=== PATIENT | female | born 1955 | race Caucasian/White ===

== ENCOUNTER → 2023-07-13 | Outpatient (CLI) | payer MEDICARE ==
[~2023-07-13] VITALS: Ht 154.9 cm; Wt 59.8 kg
[2023-07-13] VITALS (11 sets, daily range): BP systolic 120–171; BP diastolic 63–85; PULSE 102–116; TEMP 97.6
[~2023-07-13] MED LIST: BASAGLAR K100 UNIT/1 SQ; PRENATAL TABLET PO; TAPAZOLE5 MG PO; TRULICITY1.5 MG/0.5 SQ; TYLENOL 8 HR PO; VITAMIN B12 1541 TAB PO; VITAMIN D31000 I1 PO; ZOCOR 10MG10 MG PO
[2023-07-13 08:25] LABS: HEMATOCRIT 28.1 % (37.0-47.0); MEAN CELL VOLUME 91 fl (80.0-100.0); MEAN CORPUSCULAR HEMOGLOBIN 32 pg (27-31); MEAN CORPUSCULAR HGB CONC 36 g/dl (33.0-37.0); MEAN PLATELET VOLUME 8.8 fl (7.4-10.4); PLATELET COUNT 99 K/mm3 (130-400); RED BLOOD COUNT 3.09 M/mm3 (4.10-5.30); REDCELL DISTRIBUTION WIDTH-CV 13.8 % (11.5-14.5)
[2023-07-13 10:07] LABS: ERYTHROCYTE SEDIMENTATION RATE 45 mm/hr (0-30)
--- NOTE | 2023-07-13 10:14 | NUR ---
NOT ALL LABS DRAWN. INFORMED THE LAB THEY RAN MUCH THEY COULD WITH THE BLOOD THEY HAD. CALLED THE PT TO COME BACK THEY WERE IN [place]. CALLED DR IRAHETA OFFICE AND LET THE NURSE KNOW. SHE WILL TALK TO THE DOCTOR AND CALL THE PATIENT.
[2023-07-13 10:30] LABS: EOSINOPHIL 2 % (0-4); LYMPHOCYTE 42 % (20.0-51.0); NEUTROPHILS 53 % (42.0-75.2); PLATELET ESTIMATE NORMAL (NORMAL)
== END ==
LOC: COL.RAD 07:20
PROVIDERS: Internal Medicine
DX: D61.818 Other pancytopenia (principal)
CPT/HCPCS: C1830; J2250; J3010

== ENCOUNTER 2023-09-04 11:29 | Emergency (ER) | payer MEDICARE ==
[~2023-09-04] VITALS: Ht 152.4 cm; Wt 59.1 kg
[~2023-09-04 11:29] MED LIST changes: +BLUE-EMU LIDOC1 EACH TP; +CYMBALTA 20MG20 MG
[2023-09-04 11:41] VITALS: TEMP 98.3
[2023-09-04 12:05] LABS: BASO % 0.3 % (0.0-2.0); GRAN # 4.1 K/mm3 (1.4-6.5); GRAN % 63.8 % (42.2-75.2); LYMPH # 1.7 K/mm3 (1.2-3.4); MEAN CORPUSCULAR HGB CONC 33 g/dl (33.0-37.0); MEAN PLATELET VOLUME 9.4 fl (7.4-10.4); MONO # 0.6 K/mm3 (0.1-0.6); MONO % 9.6 % (1.7-9.3); PLATELET COUNT 86 K/mm3 (130-400); RED BLOOD COUNT 2.41 M/mm3 (4.10-5.30); REDCELL DISTRIBUTION WIDTH-CV 14.3 % (11.5-14.5)
[2023-09-04] MEDS ORDERED: NS 1,000 ML IV ONE (12:15)
[2023-09-04 12:16] LABS: ALBUMIN 3.1 gm/dL (3.4-4.8); BILIRUBIN,TOTAL 1.5 mg/dL (0.2-1.2); CALCIUM 11.9 mg/dL (8.4-10.2); CREATININE, serum 1.33 mg/dL (0.57-1.11); POTASSIUM 4.2 mmol/L (3.5-4.5)
[2023-09-04 12:19] LABS: HEMATOCRIT 23.2 % (37.0-47.0); HEMOGLOBIN 7.7 g/dl (12.5-16.0); MEAN CELL VOLUME 96 fl (80.0-100.0); MEAN CORPUSCULAR HEMOGLOBIN 32 pg (27-31)
[2023-09-04 13:05] LABS: COLLECTION METHOD CLEAN CATCH
[2023-09-04 13:17] LABS: URINE APPEARANCE CLEAR (CLEAR/HAZY); URINE BLOOD TRACE (NEGATIVE); URINE COLOR YELLOW (YELLOW); URINE GLUCOSE 2+ (NEGATIVE); URINE KETONE 3+ (NEGATIVE); URINE NITRATE NEGATIVE (NEGATIVE); URINE PROTEIN(semi-quant) TRACE (NEGATIVE)
[2023-09-04] MEDS ORDERED: Ondansetron 4 MG/2 ML VIAL IV ONE (13:45)
[2023-09-04] MEDS ORDERED: LR 1,000 ML IV ONE (13:45)
[2023-09-04] MEDS ORDERED: methIMAzole 5 MG TAB PO ONE (14:30)
[2023-09-04] MEDS ORDERED: Propranolol 1 MG/ML 1 ML AMP IV ONE (14:30)
[2023-09-04] MEDS ORDERED: Insulin Human Regular/NS 100 ML IV ONE (14:30)
[2023-09-04] MEDS ORDERED: D5NS 1,000 ML IV ONE (15:00)
[2023-09-04 15:22] VITALS: BP 138/72; PULSE 125
== END 2023-09-04 15:22 | disposition short-term general hospital (02) ==
LOC: COL.ER 11:29
PROVIDERS: Family Medicine
DX: E87.20 Acidosis, unspecified (principal)
CPT/HCPCS: J1800; J1815; J2405; J7030; J7042; J7120